=== PATIENT | male | born 1980 | race Caucasian/White ===

== ENCOUNTER 2023-09-01 17:17 | Emergency (ER) | payer MEDICAID ==
[~2023-09-01] VITALS: Ht 165.1 cm; Wt 70.0 kg
[2023-09-01 17:27] VITALS: O2SAT 94
[2023-09-01] MEDS ORDERED: CEFEPIME 1,000 MG in DEXTROSE 5% WATER 50 ML IV SCH (17:45)
[2023-09-01] MEDS ORDERED: SODIUM CHLORIDE 0.9% 1000ML BAG (SEPSIS BOLUS) IV ONE (17:45)
[2023-09-01] MEDS ORDERED: VANCOMYCIN 1G PREMIX 200 ML IV SCH (17:45)
[2023-09-01] MEDS ORDERED: LORAZEPAM 2MG/ML CPJ IM STA (17:55)
[2023-09-01] MEDS ORDERED: HALOPERIDOL LACTATE 5MG/ML VIAL IM STA (17:55)
[2023-09-01] MEDS ORDERED: DIPHENHYDRAMINE 50MG/ML VIAL IM STA (17:55)
[2023-09-01 20:46] LABS: BASOPHILS % 0.3 % (0.0-2.0); EOSINOPHILS % 0.7 % (0.0-5.0); HEMATOCRIT. 34.7 % (42.0-52.0); HEMOGLOBIN. 11.1 g/dL (14.0-18.0); LYMPHOCYTES % 16.9 % (20.0-50.0); MEAN CORPUSCULAR HEMOGLOBIN 27.8 pg (28.0-32.0); MONOCYTES % 6.8 % (2.0-8.0); NEUTROPHILS % 75.3 % (40.0-76.0); PLATELET 315 x1000/uL (130-400); RED BLOOD CELL COUNT 3.99 mill/uL (4.7-6.1); RED CELL DISTRIBUTION WIDTH 14.4 % (11.6-14.6); WHITE BLOOD COUNT 12.9 x1000/uL (4.5-11.0)
[2023-09-01 20:48] LABS: CLARITY URINE CLEAR (CLEAR); COLOR URINE DARK YELLOW (YELLOW); GLUCOSE URINE NEGATIVE (NEGATIVE); KETONES URINE TRACE (NEGATIVE); LEUKOCYTE ESTERASE URINE NEGATIVE (NEGATIVE); NITRITE URINE NEGATIVE (NEGATIVE); OCCULT BLOOD URINE NEGATIVE (NEGATIVE); PH URINE 5.5 (4.5-8.0); PROTEIN URINE TRACE (NEGATIVE); SPECIFIC GRAVITY URINE 1.029 (1.005-1.030)
[2023-09-01 20:50] LABS: YEAST URINE NONE SEEN
[2023-09-01 20:59] LABS: CHLORIDE 110 mEq/L (98-107); INDEX HEMOLYSI 1 (1-3); INDEX ICTERIC 1 (1-4); INDEX LIPEMIC 1 (1-3); POTASSIUM 3.5 mEq/L (3.5-5.1); SODIUM 144 mEq/L (136-145)
[2023-09-01 21:00] LABS: *AMPHETAMINES SCREEN URINE PRESUMTIVE POSITIVE (NEGATIVE); *BARBITURATES SCREEN URINE NEGATIVE (NEGATIVE); *BENZODIAZEPINES SCREEN URINE NEGATIVE (NEGATIVE); *COCAINE SCREEN URINE NEGATIVE (NEGATIVE); CANNABINOID URINE SCREEN PRESUMTIVE POSITIVE (NEGATIVE); ECSTASY MDMA SCREEN URINE CONF.TEST INDICATED (NEGATIVE); OPIATES URINE SCREEN NEGATIVE (NEGATIVE); PHENCYCLIDINE URINE SCREEN NEGATIVE (NEGATIVE)
[2023-09-01 21:08] LABS: ACETAMINOPHEN < 2 ug/mL (10-30); ALANINE AMINOTRANSFERASE 46 IU/L (13-61); ALBUMIN 3.3 g/dL (3.4-5.0); ASPARTATE AMINOTRANSFERASE 45 IU/L (15-37); BILIRUBIN TOTAL 0.4 mg/dL (0.1-1.0); CALCIUM 9.1 mg/dL (8.5-10.1); CARBON DIOXIDE 25 mEq/L (21-32); CREATININE 0.9 mg/dL (0.6-1.3); ETHANOL BLOOD < 10 mg/dL (<10); GLUCOSE 76 mg/dL (70-105); PROTEIN TOTAL 6.7 g/dL (6.0-8.3); UREA NITROGEN BLOOD 18 mg/dL (7-21)
[2023-09-01 21:10] LABS: AMMONIA 29 uMol/L (<32)
[2023-09-01 21:37] LABS: BACTERIA URINE TRACE; SQUAMOUS EPITHELIAL CELL URINE FEW /lpf (RARE/1+)
[2023-09-02 05:26] VITALS: BP 118/59; PULSE 98; RESP 16; TEMP 98.6
== END 2023-09-02 06:37 | disposition home or self-care (01) ==
LOC: ER 17:17 → EDBD 17:17 → ER 09-02 06:37
DX: R41.82 Altered mental status, unspecified (principal)
CPT/HCPCS: 80053; 80305; 81003; 80307; 80329; 80320; 82140; 82962; 85025; 87040; 36415; 70450; 96372; 99285; J1200; J1630; J2060; J7030; Z7610 ×4; J0692; J7060; G0480